=== PATIENT | female | born 1985 | race Caucasian/White ===

== ENCOUNTER 2023-12-16 09:30 | Outpatient (CLI) | payer OTHER, SELFPAY ==
[2023-12-23 00:03] LABS: HPV Source Cervical; HPV, High Risk by TMA Not Detected
== END 2023-12-16 09:31 | disposition home or self-care (01) ==
PROVIDERS: Visit Provider Obstetrics & Gynecology
DX: Z01.419 Encounter for gynecological examination (general) (routine) without abnormal findings (principal); N87.1 Moderate cervical dysplasia; E66.9 Obesity, unspecified; Z13.6 Encounter for screening for cardiovascular disorders; Z12.4 Encounter for screening for malignant neoplasm of cervix
CPT/HCPCS: 80061; 84443; 87624; 87625; 88141; 88142

== ENCOUNTER 2024-01-14 10:43 | Outpatient (CLI) | payer OTHER, SELFPAY | END 2024-01-14 10:44 | disposition home or self-care (01) | PROVIDERS: Visit Provider Nurse Practitioner Family | DX: R21 Rash and other nonspecific skin eruption (principal); D69.2 Other nonthrombocytopenic purpura | CPT/HCPCS: 80048; 85651; 86140 ==

== ENCOUNTER 2024-01-17 15:36 | Outpatient (CLI) | payer OTHER, SELFPAY ==
[2024-01-20 00:02] LABS: Complement Activity Total >95.0 U/mL (38.7-89.9)
== END 2024-01-17 15:37 | disposition home or self-care (01) ==
PROVIDERS: PCP Family Medicine; Visit Provider Family Medicine
DX: D69.2 Other nonthrombocytopenic purpura (principal); R53.83 Other fatigue; R00.0 Tachycardia, unspecified; F41.1 Generalized anxiety disorder
CPT/HCPCS: 80048; 80053; 80076; 82595; 84100; 84443; 86038; 86140; 86162; 86703; 87040

== ENCOUNTER 2024-01-24 15:41 | Outpatient (CLI) | payer OTHER, SELFPAY | END 2024-01-24 15:42 | disposition home or self-care (01) | PROVIDERS: PCP Family Medicine; Visit Provider Family Medicine | DX: D69.2 Other nonthrombocytopenic purpura (principal); R31.9 Hematuria, unspecified | CPT/HCPCS: 86038; 86162; 87086 ==

== ENCOUNTER 2024-02-07 16:13 | Outpatient (CLI) | payer OTHER, SELFPAY | END 2024-02-07 16:14 | disposition home or self-care (01) | PROVIDERS: PCP Family Medicine; Visit Provider Family Medicine | DX: M31.0 Hypersensitivity angiitis (principal); R31.9 Hematuria, unspecified | CPT/HCPCS: 82784; 83036; 83516; 86160 ==

== ENCOUNTER 2025-02-01 09:37 | Outpatient (CLI) | payer OTHER, SELFPAY ==
[2025-02-01 15:28] LABS: Bacterial Vaginosis* Negative (Negative); Candida glab/krus NOT DETECTED (No Detected)
[2025-02-02 20:37] LABS: HPV Source Cervix
[2025-02-03 16:16] LABS: HPV Genotype 16 by TMA Not Detected; HPV Genotype 18/45 by TMA Not Detected
[2025-02-06 10:07] LABS: Pap Test Digital Imaging Done
== END 2025-02-01 09:38 | disposition home or self-care (01) ==
PROVIDERS: PCP Family Medicine; Visit Provider Obstetrics & Gynecology
DX: Z12.4 Encounter for screening for malignant neoplasm of cervix (principal); N89.8 Other specified noninflammatory disorders of vagina
CPT/HCPCS: 81513; 87481; 87624; 87625; 87661; 88141; 88142; 88175